=== PATIENT | female | born 1985 | race Caucasian/White ===

== ENCOUNTER 2016-11-24 00:57 | Emergency (ER) | payer MEDICAID ==
[2016-11-24] MEDS ORDERED: Bacitracin Oint 1 GM U/D Packet TOP ONE (01:09)
--- NOTE | 2016-11-24 01:12 | EDM.PDOC ---
ED HPI GENERAL MEDICAL PROBLEM - General Chief Complaint: Laceration Stated Complaint: CUT UPPPER LEFT EYE Time Seen by Provider: 11/24/16 01:10 Source of Information: Reports: Patient History Limitations: Reports: No Limitations - History of Present Illness INITIAL COMMENTS - FREE TEXT/NARRATIVE: left eyebrow laceration ; this is a 31 year old female present to ER for evaluation. She was playing with her Pitbull this evening, when his paw caught her eyebrow ring and ripped it out. now with a laceration. last tetenus >10 years. Onset: Sudden Location: Reports: Face Quality: Reports: Ache Severity: Mild Improves with: Reports: None Worsens with: Reports: None Associated Symptoms: Reports: No Other Symptoms Left Head Pain Score (Numeric/FACES): 2 - Related Data Allergies Allergy/AdvReac Type Severity Reaction Status Date / Time No Known Allergies Allergy Verified 04/24/13 06:16 Home Meds: Home Meds Gabapentin [Gralise] 300 mg PO QID 03/11/13 [History] Cyclobenzaprine [Flexeril] 10 mg PO DAILY 11/14/15 [History] FLUoxetine [PROzac] 20 mg PO DAILY 11/14/15 [History] Methylphenidate [Ritalin] 20 mg PO QID 11/14/15 [History] Past Medical History Musculoskeletal History: Reports: Fracture Neurological History: Reports: Head Trauma Psychiatric History: Reports: ADHD, Anxiety, Depression - Past Surgical History Respiratory Surgical History: Reports: Lung Resection Social & Family History - Tobacco Use Smoking Status *Q: Current Every Day Smoker Years of Tobacco use: 15 Packs/Tins Daily: 1 Used Tobacco, but Quit: No Second Hand Smoke Exposure: No - Alcohol Use Days Per Week of Alcohol Use: 0 - Recreational Drug Use Recreational Drug Use: No ED ROS GENERAL - Review of Systems Review Of Systems: See Below Constitutional: Reports: No Symptoms HEENT: Reports: No Symptoms Skin: Reports: Wound ED EXAM, SKIN/RASH Exam: See Below Exam Limited By: No Limitations General Appearance: Alert, WD/WN, No Apparent Distress Eye Exam: Left Eye: Other (eyebrow laceration, black eye), Bilateral Eye: EOMI, PERRL Nose: Normal Inspection, Normal Mucosa, No Blood Throat/Mouth: Normal Inspection, Normal Lips, Normal Teeth, Normal Gums, Normal Oropharynx, Normal Voice, No Airway Compromise Head: Normocephalic, Other (left eye with bruising and edema from minor trauma) Neck: Normal Inspection, Supple, Non-Tender Skin: Warm, Wound/Incision Characteristics: Linear Associated features: Inflammation Lymphatic: No Adenopathy ED SKIN PROCEDURES - Laceration/Wound Repair Left Lateral Other Lac/wound length in cm: 2 Appearance: Subcutaneous Distal NVT: Neuro & Vascular Intact, No Tendon Injury Anesthetic Type: Local Local Anesthesia - Lidocaine (Xylocaine): 1% With EPI Local Anesthetic Volume: Other (less than one cc) Skin Prep: Chlorhexidine (Hibiciens), Saline Exploration/Debridement/Repair: Wound Explored, in a Bloodless Field Closed with: Sutures Suture Size: 4-0 # of Sutures: 3 Suture Type: Prolene Sterile Dressing Applied: Nurse Tetanus Status Addressed: Yes (given Tdap in ER) Complications: No Course - Vital Signs Last Recorded V/S: Last Vital Signs Temp 37.5 C 11/24/16 01:09 Pulse 93 11/24/16 01:09 Resp 16 11/24/16 01:09 BP 141/84 H 11/24/16 01:09 Pulse Ox 91 L 11/24/16 01:09 - Orders/Labs/Meds Orders: Active Orders 24 hr Category Date Time Status Vaccines to be Administered [RC] PER UNIT ROUTINE Care 11/24/16 01:26 Ordered Diphth,Pertuss(Acell),Tet Vac [Adacel] Med 11/24/16 01:26 Once 0.5 ml IM .ONCE ONE Meds: Medications Discontinued Medications Generic Name Dose Route Start Last Admin Trade Name Jaradq PRN Reason Stop Dose Admin Bacitracin 1 dose 11/24/16 01:09 Bacitracin Oint 1 Gm TOP 11/24/16 01:10 ONETIME ONE Lidocaine HCl 5 ml 11/24/16 01:08 Xylocaine-Mpf 1% INJECT 11/24/16 01:09 ONETIME ONE Departure - Departure Time of Disposition: 01:33 Disposition: Home, Self-Care 01 Condition: good Clinical Impression: Broken skin Laceration of eyebrow, left Qualifiers: Encounter type: initial encounter Qualified Code(s): S01.112A - Laceration without foreign body of left eyelid and periocular area, initial encounter - Discharge Information Referrals: PCP,None [Primary Care Provider] - Forms: ED Department Discharge Care Plan Goals: eye brow laceration -sutures placed, -have suture removal in 5 days -apply bacitracin ointment two to three times a day for 3 day, then keep clean and dry -monitor of signs of infection; redness, drainage, swelling, increase pain return to clinic or ER for any sign of infection - Problem List & Annotations (1) Laceration of eyebrow, left SNOMED Code(s): 178855749, [id number] Code(s): S01.112A - LACERATION W/O FB OF LEFT EYELID AND PERIOCULAR AREA, INIT Status: Acute Priority: High Current Visit: Yes Qualifiers: Encounter type: initial encounter Qualified Code(s): S01.112A - Laceration without foreign body of left eyelid and periocular area, initial encounter - Problem List Review Problem List Initiated/Reviewed/Updated: Yes - My Orders Last 24 Hours: My Active Orders 11/24/16 01:26 Vaccines to be Administered [RC] PER UNIT ROUTINE Diphth,Pertuss(Acell),Tet Vac [Adacel] 0.5 ml IM .ONCE ONE - Assessment/Plan Last 24 Hours: My Active Orders 11/24/16 01:26 Vaccines to be Administered [RC] PER UNIT ROUTINE Diphth,Pertuss(Acell),Tet Vac [Adacel] 0.5 ml IM .ONCE ONE Plan: eye brow laceration -sutures placed, -have suture removal in 5 days -apply bacitracin ointment two to three times a day for 3 day, then keep clean and dry -monitor of signs of infection; redness, drainage, swelling, increase pain return to clinic or ER for any sign of infection
[2016-11-24] MEDS ORDERED: Diphtheria,Pertussis(Acell),Tetanus Vaccine 0.5 ML SDV IM ONE (01:26)
[2016-11-24 01:27] VITALS: BP 141/84
== END 2016-11-24 01:37 | disposition home or self-care (01) ==
LOC: JP.ED 00:57
DX: S01.112A Laceration without foreign body of left eyelid and periocular area, initial encounter (principal); F90.9 Attention-deficit hyperactivity disorder, unspecified type; F17.210 Nicotine dependence, cigarettes, uncomplicated; F32.9 Major depressive disorder, single episode, unspecified; F41.9 Anxiety disorder, unspecified; Z79.899 Other long term (current) drug therapy
CPT/HCPCS: 12011; 90471; 90715; 99283-25

== ENCOUNTER 2017-04-23 08:17 | Emergency (ER) | payer MEDICAID ==
[2017-04-23] MEDS ORDERED: Ketorolac 60 MG/2 ML SDV IM ONE (09:12)
--- NOTE | 2017-04-23 09:17 | EDM.PDOC ---
ED HPI GENERAL MEDICAL PROBLEM - General Chief Complaint: Abdominal Pain Stated Complaint: STRANGE STOMACH PAIN Time Seen by Provider: 04/23/17 09:00 Source of Information: Reports: Patient, Old Records History Limitations: Reports: No Limitations - History of Present Illness INITIAL COMMENTS - FREE TEXT/NARRATIVE: 31 yo female here with RUQ abdominal pain since about 0500h today. Has not eaten anything before onset. Is not and has never been . No hx of any abdominal surgeries. No fever or nausea. Feels like a spasm. No self tx. Has something similar recently to the LUQ area that she was not seen for and which went away. 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 (see below) (none) Bilateral Upper Abdominal Pain Score (Numeric/FACES): 6 - Related Data Allergies Allergy/AdvReac Type Severity Reaction Status Date / Time No Known Allergies Allergy Verified 04/24/13 06:16 Home Meds: Home Meds Gabapentin [Gralise] 300 mg PO QID 03/11/13 [History] Cyclobenzaprine [Flexeril] 10 mg PO DAILY 11/14/15 [History] FLUoxetine [PROzac] 20 mg PO DAILY 11/14/15 [History] Methylphenidate [Ritalin] 20 mg PO QID 11/14/15 [History] Past Medical History Respiratory History: Reports: Other (See Below) Other Respiratory History: Lung blisters Musculoskeletal History: Reports: Fracture Neurological History: Reports: Head Trauma Psychiatric History: Reports: ADHD, Anxiety, Depression - Past Surgical History Respiratory Surgical History: Reports: Lung Resection Social & Family History - Tobacco Use Smoking Status *Q: Unknown Ever Smoked Years of Tobacco use: 15 Packs/Tins Daily: 1 Used Tobacco, but Quit: No Second Hand Smoke Exposure: No - Alcohol Use Days Per Week of Alcohol Use: 0 - Recreational Drug Use Recreational Drug Use: No Drug Use in Last 12 Months: No ED ROS GENERAL - Review of Systems Review Of Systems: See Below Constitutional: Reports: No Symptoms HEENT: Reports: No Symptoms Respiratory: Reports: No Symptoms Cardiovascular: Reports: No Symptoms Endocrine: Reports: No Symptoms GI/Abdominal: Reports: Abdominal Pain : Reports: No Symptoms Musculoskeletal: Reports: No Symptoms Skin: Reports: No Symptoms Neurological: Reports: No Symptoms ED EXAM, GI/ABD - Physical Exam Exam: See Below Exam Limited By: No Limitations General Appearance: Alert, WD/WN, No Apparent Distress Eyes: Bilateral: Normal Appearance Ears: Normal External Exam, Normal Canal, Hearing Grossly Normal Nose: Normal Inspection, Normal Mucosa, No Blood Throat/Mouth: Normal Inspection, Normal Lips, Normal Oropharynx, Normal Voice, No Airway Compromise Head: Atraumatic, Normocephalic Neck: Normal Inspection Respiratory/Chest: No Respiratory Distress, Lungs Clear, Normal Breath Sounds, No Accessory Muscle Use Cardiovascular: Regular Rate, Rhythm, No Edema GI/Abdominal Exam: Normal Bowel Sounds, Soft, No Distention, Tender (RUQ). No: Distended, Guarding, Rigid Back Exam: Normal Inspection. No: CVA Tenderness (R), CVA Tenderness (L) Extremities: Normal Inspection, Normal Range of Motion, Non-Tender, No Pedal Edema Neurological: Alert, Oriented, CN II-XII Intact, Normal Cognition, No Motor/ Sensory Deficits Psychiatric: Normal Affect, Normal Mood Skin Exam: Warm, Dry, Intact, Normal Color, No Rash Lymphatic: No Adenopathy Course - Orders/Labs/Meds Orders: Active Orders 24 hr Category Date Time Status COMPREHENSIVE METABOLIC PN,CMP [CHEM] Stat Lab 04/23/17 09:20 Results CRP [C-REACTIVE PROTEIN] [CHEM] Stat Lab 04/23/17 09:20 Results Labs: Laboratory Tests 04/23/17 04/23/17 Range/Units 09:20 09:20 WBC 10.4 (4.5-11.0) K/uL RBC 4.49 (3.30-5.50) M/uL Hgb 14.4 (12.0-15.0) g/dL Hct 42.0 (36.0-48.0) % MCV 94 (80-98) fL MCH 32 H (27-31) pg MCHC 34 (32-36) % Plt Count 330 (150-400) K/uL Sodium 140 (140-148) mmol/L Potassium 3.7 (3.6-5.2) mmol/L Chloride 104 (100-108) mmol/L Carbon Dioxide 26 (21-32) mmol/L Anion Gap 10.3 (5.0-14.0) mmol/L BUN 9 (7-18) mg/dL Creatinine 0.7 (0.6-1.0) mg/dL Est Cr Clr Drug Dosing 107.01 mL/min Estimated GFR (MDRD) > 60 (>60) Glucose 88 (74-106) mg/dL Calcium 9.0 (8.5-10.1) mg/dL Total Bilirubin 0.5 (0.2-1.0) mg/dL AST 31 (15-37) U/L ALT 43 (12-78) U/L Alkaline Phosphatase 79 (46-116) U/L Total Protein 7.6 (6.4-8.2) g/dL Albumin 4.0 (3.4-5.0) g/dL Globulin 3.6 H (2.3-3.5) g/dL Albumin/Globulin Ratio 1.1 L (1.2-2.2) Meds: Medications Discontinued Medications Generic Name Dose Route Start Last Admin Trade Name Freq PRN Reason Stop Dose Admin Ketorolac Tromethamine 60 mg 04/23/17 09:12 04/23/17 10:19 Toradol IM 04/23/17 09:13 Not Given ONETIME ONE Departure - Departure Time of Disposition: 10:41 Disposition: Home, Self-Care 01 Condition: Good Clinical Impression: Biliary colic symptom - Discharge Information Referrals: Anuj Vogel MD [Primary Care Provider] - Forms: ED Department Discharge - My Orders Last 24 Hours: My Active Orders 04/23/17 09:20 COMPREHENSIVE METABOLIC PN,CMP [CHEM] Stat CRP [C-REACTIVE PROTEIN] [CHEM] Stat - Assessment/Plan Last 24 Hours: My Active Orders 04/23/17 09:20 COMPREHENSIVE METABOLIC PN,CMP [CHEM] Stat CRP [C-REACTIVE PROTEIN] [CHEM] Stat
== END 2017-04-23 10:59 | disposition home or self-care (01) ==
LOC: JP.ED 08:17
DX: K80.50 Calculus of bile duct without cholangitis or cholecystitis without obstruction (principal); F32.9 Major depressive disorder, single episode, unspecified; Z79.899 Other long term (current) drug therapy; R19.8 Other specified symptoms and signs involving the digestive system and abdomen
CPT/HCPCS: 36415; 80053; 85027; 86140; 99284

== ENCOUNTER 2017-05-11 18:17 | Emergency (ER) | payer MEDICAID ==
[2017-05-11 18:52] VITALS: BP 144/86
[2017-05-11] MEDS ORDERED: Bacitracin Oint 1 GM U/D Packet ONE (19:15)
[2017-05-11] MEDS ORDERED: Diphtheria,Pertussis(Acell),Tetanus Vaccine 0.5 ML SDV ONE (19:15)
[2017-05-11] MEDS ORDERED: Bacitracin Oint 1 GM U/D Packet TOP ONE (19:53)
--- NOTE | 2017-05-11 19:59 | EDM.PDOC ---
ED HPI GENERAL MEDICAL PROBLEM - General Chief Complaint: Laceration Stated Complaint: CUT LT LITTLE FINGER Time Seen by Provider: 05/11/17 19:38 Source of Information: Reports: Patient, Family, RN Notes Reviewed History Limitations: Reports: No Limitations - History of Present Illness INITIAL COMMENTS - FREE TEXT/NARRATIVE: 31-year-old female presents emergency department today complaint of laceration to her left hand this occurred while she was carving up a turkey laceration is over the proximal flinching on digit #5 she has no functional complaints sensation is intact - Related Data Allergies Allergy/AdvReac Type Severity Reaction Status Date / Time No Known Allergies Allergy Verified 04/24/13 06:16 Home Meds: Home Meds Gabapentin [Gralise] 300 mg PO QID 03/11/13 [History] Cyclobenzaprine [Flexeril] 10 mg PO DAILY 11/14/15 [History] FLUoxetine [PROzac] 20 mg PO DAILY 11/14/15 [History] Methylphenidate [Ritalin] 20 mg PO QID 11/14/15 [History] Hydrocodone/Acetaminophen [Hydrocodon-Acetaminophen 5-325] 1 tab PO TID PRN [History] Past Medical History Respiratory History: Reports: Other (See Below) Other Respiratory History: Lung blisters Musculoskeletal History: Reports: Fracture Neurological History: Reports: Head Trauma Psychiatric History: Reports: ADHD, Anxiety, Depression - Past Surgical History Respiratory Surgical History: Reports: Lung Resection Social & Family History - Tobacco Use Smoking Status *Q: Current Every Day Smoker Years of Tobacco use: 15 Packs/Tins Daily: 0.5 Used Tobacco, but Quit: No Second Hand Smoke Exposure: No - Alcohol Use Days Per Week of Alcohol Use: 0 - Recreational Drug Use Recreational Drug Use: No Drug Use in Last 12 Months: No ED ROS GENERAL - Review of Systems Review Of Systems: See Below Musculoskeletal: Reports: No Symptoms Skin: Reports: Wound Neurological: Reports: No Symptoms ED EXAM, SKIN/RASH Exam: See Below Text/Narrative:: Examination of left hand she has full range of motion all digits radial pulses + 2 there is a 2.5 cm laceration over the proximal phalanges MCP area is completely through the dermis exploration of the wound I do not appreciate any tendon involvement sensation is intact ED SKIN PROCEDURES - Laceration/Wound Repair Left Finger Lac/Wound length In cm: 2.5 Appearance: Subcutaneous Distal NVT: Neuro & Vascular Intact, No Tendon Injury Anesthetic Type: Local Local Anesthesia - Lidocaine (Xylocaine): 1% Plain Local Anesthetic Volume: 3cc Skin Prep: Chlorhexidine (Hibiciens), Saline Saline Irrigation (cc's): 90 Exploration/Debridement/Repair: Wound Explored, In a Bloodless Field, Explored to Base Closed with: Sutures Suture Size: 4-0 # of Sutures: 4 Suture Type: Nylon, Interrupted Sterile Dressing Applied: Nurse Tetanus Status Addressed: Yes (Today) Complications: No Course - Vital Signs Last Recorded V/S: Last Vital Signs Temp 97.7 F 05/11/17 19:08 Pulse 93 05/11/17 19:08 Resp 16 05/11/17 19:08 BP 144/86 H 05/11/17 19:08 Pulse Ox 94 L 05/11/17 19:08 - Orders/Labs/Meds Meds: Medications Discontinued Medications Generic Name Dose Route Start Last Admin Trade Name Freq PRN Reason Stop Dose Admin Bacitracin Confirm 05/11/17 19:15 Bacitracin Oint 1 Gm Administered 05/11/17 19:16 Dose 1 dose .ROUTE .STK-MED ONE Diphtheria/Tetanus/Acell Pertussis Confirm 05/11/17 19:15 Adacel Administered 05/11/17 19:16 Dose 0.5 ml .ROUTE .STK-MED ONE Lidocaine HCl Confirm 05/11/17 19:15 Xylocaine-Mpf 1% Administered 05/11/17 19:16 Dose 5 ml .ROUTE .STK-MED ONE Departure - Departure Time of Disposition: 19:58 Disposition: Home, Self-Care 01 Condition: Good Clinical Impression: Laceration of left little finger Qualifiers: Encounter type: initial encounter Damage to nail status: without damage Foreign body presence: without foreign body Qualified Code(s): S61.217A - Laceration without foreign body of left little finger without damage to nail, initial encounter - Discharge Information Referrals: Anuj Vogel MD [Primary Care Provider] - Forms: ED Department Discharge Additional Instructions: Suture removal in 10 days, follow wound care instruction sheet, follow-up with your primary care in 10 days for suture removal, call or return to the emergency department with worsening of symptoms - Assessment/Plan Plan: Assessment Acuity = acute Site and laterality = 2.5 cm laceration dorsal surface left digit #5 Etiology = secondary trauma with a knife Manifestations = none Location of injury = Home Lab values = none Plan Suture removal in 10 days, follow wound care instruction sheet Patient was in agreement with the plan all questions were answered, they were instructed to return to the emergency department or call for worsening symptoms. This note was dictated using [employer] voice recognition software please call with any questions.
== END 2017-05-11 20:07 | disposition home or self-care (01) ==
LOC: JP.ED 18:17
DX: S61.217A Laceration without foreign body of left little finger without damage to nail, initial encounter (principal); F17.210 Nicotine dependence, cigarettes, uncomplicated; Z79.899 Other long term (current) drug therapy; Z23 Encounter for immunization; W26.0XXA Contact with knife, initial encounter
CPT/HCPCS: 12001; 90471; 90715; 99283-25

== ENCOUNTER 2017-05-14 17:22 | Emergency (ER) | payer MEDICAID ==
[2017-05-14 17:35] VITALS: BP 154/89
--- NOTE | 2017-05-14 18:21 | EDM.PDOC ---
ED HPI GENERAL MEDICAL PROBLEM - General Chief Complaint: Wound Recheck Stated Complaint: INFECTION Time Seen by Provider: 05/14/17 18:03 Source of Information: Reports: Patient, RN Notes Reviewed History Limitations: Reports: No Limitations - History of Present Illness INITIAL COMMENTS - FREE TEXT/NARRATIVE: 31-year-old female presents emergency department today with concern about wound infection she recently had a laceration to her little finger on her left hand over the last couple days she's noted redness going up her arm as well as thick purulent drainage coming from the wound she was evaluated in clinic was given 1 dose of medication IM started on combination Bactrim and clindamycin she only has 1 dose of her antibiotics in sister redness has gone up past the original But now has faded slightly no fevers Left Wrist Pain Score (Numeric/FACES): 8 - Related Data Allergies Allergy/AdvReac Type Severity Reaction Status Date / Time No Known Allergies Allergy Verified 04/24/13 06:16 Home Meds: Home Meds Gabapentin [Gralise] 300 mg PO QID 03/11/13 [History] Cyclobenzaprine [Flexeril] 10 mg PO DAILY PRN 11/14/15 [History] FLUoxetine [PROzac] 20 mg PO DAILY 11/14/15 [History] Methylphenidate [Ritalin] 20 mg PO QID 11/14/15 [History] Hydrocodone/Acetaminophen [Hydrocodon-Acetaminophen 5-325] 1 tab PO TID PRN [History] Cephalexin 1 cap PO QID 05/14/17 [History] Sulfamethoxazole/Trimethoprim [Bactrim Ds Tablet] 1 tab PO BID 05/14/17 [History ] Past Medical History Respiratory History: Reports: Other (See Below) Other Respiratory History: Lung blisters Musculoskeletal History: Reports: Fracture Neurological History: Reports: Head Trauma Psychiatric History: Reports: ADHD, Anxiety, Depression - Past Surgical History Respiratory Surgical History: Reports: Lung Resection Social & Family History - Tobacco Use Smoking Status *Q: Light Tobacco Smoker Years of Tobacco use: 16 Packs/Tins Daily: 0.5 Used Tobacco, but Quit: No Second Hand Smoke Exposure: No - Alcohol Use Days Per Week of Alcohol Use: 0 - Recreational Drug Use Recreational Drug Use: No Drug Use in Last 12 Months: No ED ROS GENERAL - Review of Systems Review Of Systems: See Below Constitutional: Denies: Fever, Chills Respiratory: Reports: No Symptoms Cardiovascular: Reports: No Symptoms Skin: Reports: Rash ED EXAM, SKIN/RASH Exam: See Below Text/Narrative:: Examination of the integument system left hand the wound is healing well. Is mild amount erythema around the warm slight amount of drainage is noted thick purulence there is slight erythema up the dorsal surface of the hand mid forearm is about 3 cm past the original line drawn is faint radial pulse is +2 Exam Limited By: No Limitations General Appearance: Alert, WD/WN, No Apparent Distress Respiratory/Chest: No Respiratory Distress Course - Vital Signs Last Recorded V/S: Last Vital Signs Temp 97.0 F 05/14/17 17:49 Pulse 113 H 05/14/17 17:49 Resp 20 05/14/17 17:49 BP 154/89 H 05/14/17 17:49 Pulse Ox 98 05/14/17 17:49 - Orders/Labs/Meds Labs: Laboratory Tests 05/14/17 05/14/17 05/14/17 Range/Units 18:28 18:28 18:28 WBC 10.1 (4.5-11.0) K/uL RBC 4.35 (3.30-5.50) M/uL Hgb 14.2 (12.0-15.0) g/dL Hct 40.6 (36.0-48.0) % MCV 93 (80-98) fL MCH 33 H (27-31) pg MCHC 35 (32-36) % Plt Count 341 (150-400) K/uL Neut % (Auto) 58 (36-66) % Lymph % (Auto) 32 (24-44) % [place] % (Auto) 8 H (2-6) % Eos % (Auto) 1 L (2-4) % Baso % (Auto) 0 (0-1) % Sodium 140 (140-148) mmol/L Potassium 3.4 L (3.6-5.2) mmol/L Chloride 104 (100-108) mmol/L Carbon Dioxide 24 (21-32) mmol/L Anion Gap 15.4 H (5.0-14.0) mmol/L BUN 7 (7-18) mg/dL Creatinine 0.9 (0.6-1.0) mg/dL Est Cr Clr Drug Dosing 80.00 mL/min Estimated GFR (MDRD) > 60 (>60) Glucose 107 H (74-106) mg/dL Lactic Acid 2.2 H (0.4-2.0) mmol/L Calcium 9.4 (8.5-10.1) mg/dL Total Bilirubin 0.4 (0.2-1.0) mg/dL AST 23 (15-37) U/L ALT 31 (12-78) U/L Alkaline Phosphatase 77 (46-116) U/L C-Reactive Protein 0.76 H (0.0-0.3) mg/dL Total Protein 7.5 (6.4-8.2) g/dL Albumin 3.8 (3.4-5.0) g/dL Globulin 3.7 H (2.3-3.5) g/dL Albumin/Globulin Ratio 1.0 L (1.2-2.2) Departure - Departure Time of Disposition: 19:16 Disposition: Home, Self-Care 01 Condition: Good Clinical Impression: Cellulitis Qualifiers: Site of cellulitis of extremity: finger Laterality: left - Discharge Information Referrals: Anuj Vogel MD [Primary Care Provider] - Forms: ED Department Discharge Additional Instructions: Take full course of antibiotics, please call with worsening of symptoms otherwise keep your regular follow-up appointments - Assessment/Plan Plan: Assessment Acuity = acute Site and laterality = wound infection left hand cellulitis Etiology = secondary trauma Manifestations = none Location of injury = Home Lab values = potassium low at 3.4 consistent with hypokalemia, CRP elevated at 0.76, lactic acid elevated at 2.2 consistent lactic acidosis Plan I did review lab work results with her recommend she continue the antibiotics of Bactrim and clindamycin that were initiated yesterday Patient was in agreement with the plan all questions were answered, they were instructed to return to the emergency department or call for worsening symptoms. This note was dictated using [employer] voice recognition software please call with any questions.
== END 2017-05-14 19:23 | disposition home or self-care (01) ==
LOC: JP.ED 17:22
DX: L03.012 Cellulitis of left finger (principal); F17.210 Nicotine dependence, cigarettes, uncomplicated; Z79.899 Other long term (current) drug therapy
CPT/HCPCS: 36415; 80053; 83605; 85025; 86140; 99283

== ENCOUNTER 2017-06-01 07:51 | Day surgery (SDC) | payer MEDICAID ==
[~2017-06-01 07:51] MED LIST: Bupivacaine 0.5% 50 ML MDV ONE; Lidocaine 1% with EPINEPHrine 1:100,000 50 ML MDV ONE
[2017-06-01] MEDS ORDERED: Sodium Chloride 0.9% 1,000 ML IV SCH (08:00)
[2017-06-01] MEDS ORDERED: metroNIDAZOLE/Normal Saline 500 MG in Premix Bag 1 BAG IV ONE (08:15)
[2017-06-01] MEDS ORDERED: Glycopyrrolate 0.2 MG/ML 5 ML MDV ONE (08:32)
[2017-06-01] MEDS ORDERED: Ondansetron 4 MG/2 ML SDV ONE (08:32)
[2017-06-01] MEDS ORDERED: Neostigmine Methylsulfate 1 MG/ML 5 ML Syringe ONE (08:32)
[2017-06-01] MEDS ORDERED: Dexamethasone 4 MG/ML SDV ONE (08:32)
[2017-06-01] MEDS ORDERED: Propofol 200 MG/20 ML SDV ONE (08:32)
[2017-06-01] MEDS ORDERED: Succinylcholine 200 MG/10 ML MDV ONE (08:32)
[2017-06-01] MEDS ORDERED: Rocuronium 50 MG/5 ML Vial ONE (08:32)
[2017-06-01] MEDS ORDERED: ceFAZolin 2 GM in Premix Bag 1 BAG IV ONE (09:00)
[2017-06-01] MEDS ORDERED: fentaNYL 250 MCG/5 ML SDV ONE (09:13)
[2017-06-01] MEDS ORDERED: Zolpidem 5 MG Tab PO PRN (09:21)
[2017-06-01] MEDS ORDERED: Acetaminophen/oxyCODONE 325-10 MG Tab PO PRN (09:21)
[2017-06-01] MEDS ORDERED: hydrOXYzine HCl 100 MG/2 ML SDV IM PRN (09:21)
[2017-06-01] MEDS ORDERED: Polyethylene Glycol 3350 Powder 17 GM Packet PO PRN (09:21)
[2017-06-01] MEDS ORDERED: Benzocaine/Cetylpyridinium/Menthol Lozenge MUCMEM PRN (09:21)
[2017-06-01] MEDS ORDERED: Docusate Sodium 100 MG Cap PO PRN (09:21)
[2017-06-01] MEDS ORDERED: diphenhydrAMINE 50 MG/ML SDV IVPUSH PRN (09:21)
[2017-06-01] MEDS ORDERED: Promethazine 25 MG/ML SDV IM PRN (09:21)
[2017-06-01] MEDS ORDERED: Ketorolac 60 MG/2 ML SDV ONE (09:47)
[2017-06-01 14:48] VITALS: BP 118/73
--- NOTE | 2017-06-01 15:11 | OR ---
DATE OF PROCEDURE: 06/01/2017 PROCEDURE: Laparoscopic cholecystectomy. PREOPERATIVE DIAGNOSIS: Mild biliary dyskinesia. POSTOPERATIVE DIAGNOSIS: Mild biliary dyskinesia. RISKS: Risks, benefits, alternatives, limitations including but not limited to infection, bleeding, injury to common bile duct, cystic duct leaks, and other risks not listed here were explained to the patient, who wished to proceed. ANESTHESIA: General/local. PROCEDURE IN DETAIL: The patient was placed in supine position. A supraumbilical curvilinear incision was made. A Veress needle was used to enter the abdomen without abnormality. A drop test was performed without abnormality. The abdomen was subsequently insufflated. An Optiview trocar was inserted, and no evidence of enterotomy or injury was noted. An additional 10 and two 5 mm ports were entered under direct visualization. The gallbladder was retracted cephalad. The infundibulum was retracted inferolaterally. Using blunt dissection, a "clear view" of the gallbladder was obtained. A single pulsatile structure was entering the gallbladder and a single nonpulsatile structure was noted entering the gallbladder. These were subsequently clipped and subsequently transected. The remaining one third of the gallbladder was removed off the gallbladder bed without difficulty. This was delivered through the superior port using a bag. The liver was reinspected for bleeding, which none was noted. This was thoroughly irrigated. The entry site was again inspected. No abnormalities were noted. The air was removed. The wound was closed with 3-0 Vicryl and 4-0 Vicryl in an interrupted and running fashion. Dermabond was applied. The patient tolerated the procedure well. Andrew Camarena MD /[id number]
== END 2017-06-01 15:16 | disposition home or self-care (01) ==
LOC: JP.SDS 07:51 → JP.MS 09:21 → JP.SDS 15:16
PROVIDERS: ATTEND Surgery
DX: K81.1 Chronic cholecystitis (principal); F98.8 Other specified behavioral and emotional disorders with onset usually occurring in childhood and adolescence; F32.9 Major depressive disorder, single episode, unspecified; B18.2 Chronic viral hepatitis C; Z79.899 Other long term (current) drug therapy; F17.210 Nicotine dependence, cigarettes, uncomplicated
CPT/HCPCS: 36415; 47562; 80053; 85027; A9270; J0690; J1100; J1885; J2405; J2704; J2710; J3010; J3410; J7040; 88304; J0330

== ENCOUNTER 2017-12-06 23:11 | Emergency (ER) | payer MEDICAID ==
--- NOTE | 2017-12-07 00:05 | EDM.PDOC ---
ED HPI GENERAL MEDICAL PROBLEM - General Chief Complaint: Skin Complaint Stated Complaint: INFECTION ON LEFT LEG Time Seen by Provider: 12/07/17 00:01 Source of Information: Reports: Patient, RN Notes Reviewed History Limitations: Reports: No Limitations - History of Present Illness INITIAL COMMENTS - FREE TEXT/NARRATIVE: 32-year-old female presents to the emergency department today with a boil on her left labia she states this recent open up she's had some thick purulent drainage come from this area it is tender to the touch no fevers ingrown hair labia Pain Score (Numeric/FACES): 8 - Related Data Allergies Allergy/AdvReac Type Severity Reaction Status Date / Time No Known Allergies Allergy Verified 12/06/17 23:49 Home Meds: Home Meds Cyclobenzaprine [Flexeril] 10 mg PO TID PRN 11/14/15 [History] FLUoxetine [PROzac] 60 mg PO DAILY 11/14/15 [History] Methylphenidate [Ritalin] 20 mg PO QID 11/14/15 [History] Hydrocodone/Acetaminophen [Hydrocodon-Acetaminophen 5-325] 1 tab PO TID PRN [History] Albuterol [Ventolin HFA] 2 puff PO QID PRN 05/17/17 [History] Gabapentin [Neurontin] 600 mg PO TID 05/17/17 [History] Nicotine [Nicotine Patch] 1 patch TOP Q24H 05/17/17 [History] cloNIDine [Catapres] 0.1 mg PO BEDTIME PRN 05/17/17 [History] hydrOXYzine Pamoate [Hydroxyzine Pamoate] 25 - 50 mg PO QID PRN 05/17/17 [ History] Past Medical History Respiratory History: Reports: Bronchitis, Recurrent, Other (See Below) Other Respiratory History: Lung blisters Musculoskeletal History: Reports: Fracture, Other (See Below) Other Musculoskeletal History: left laceration Neurological History: Reports: Head Trauma Psychiatric History: Reports: ADHD, Anxiety, Depression, Panic Attack Hematologic History: Reports: Blood Transfusion(s) Immunologic History: Reports: Other (See Below) Other Immunologic History: Hepatitis C - Infectious Disease History Infectious Disease History: Reports: Chicken Pox - Past Surgical History Head Surgeries/Procedures: Reports: None Respiratory Surgical History: Reports: Lung Resection, Pneumonectomy, Other ( See Below) Other Respiratory Surgeries/Procedures: partial removal of right lung GI Surgical History: Reports: Cholecystectomy Dermatological Surgical History: Reports: Plastic Surgical Reconstruction/Repair , Other (See Below) Social & Family History - Family History Family Medical History: Noncontributory - Tobacco Use Smoking Status *Q: Current Every Day Smoker Years of Tobacco use: 10 Packs/Tins Daily: 0.5 - Caffeine Use Caffeine Use: Reports: Coffee, Energy Drinks, Soda - Recreational Drug Use Recreational Drug Use: Yes Drug Use in Last 12 Months: No ED ROS GENERAL - Review of Systems Review Of Systems: See Below Constitutional: Denies: Fever Skin: Reports: Pallor, Rash, Erythema, Change in Color ED EXAM, SKIN/RASH Exam: See Below Text/Narrative:: Examination of the labia in the presence of nursing staff reveal a boil that is open and draining thick purulent discharge it is erythematous per report is warm to the touch and tender to the touch Exam Limited By: No Limitations General Appearance: Alert, WD/WN, No Apparent Distress Course - Vital Signs Last Recorded V/S: Last Vital Signs Temp 96.6 F 12/06/17 23:46 Pulse 98 12/06/17 23:46 Resp 19 12/06/17 23:46 BP 141/100 H 12/06/17 23:46 Pulse Ox 98 12/06/17 23:46 Departure - Departure Time of Disposition: 00:04 Disposition: Home, Self-Care 01 Condition: Good Clinical Impression: Abscess of labia - Discharge Information Referrals: PCP,None [Primary Care Provider] - Additional Instructions: Continue with sitz baths, take full course of antibiotics, Please followup with your primary care provider in 3-5 days if not better, please call return to the emergency department with worsening of symptoms. - Assessment/Plan Plan: Assessment Acuity = acute Site and laterality = abscess, left labia majora Etiology = secondary bacterial cause Manifestations = none Location of injury = Home Lab values = none Plan Bactrim DS 1 tab by mouth twice a day 10 days follow-up primary care in 3-5 days if not better sits baths This note was dictated using [employer] recognition software please call with any questions on syntax or grammar.
[2017-12-07 00:07] VITALS: BP 131/94
== END 2017-12-07 00:15 | disposition home or self-care (01) ==
LOC: JP.ED 23:11
DX: N76.4 Abscess of vulva (principal); B96.89 Other specified bacterial agents as the cause of diseases classified elsewhere; F41.9 Anxiety disorder, unspecified; F32.9 Major depressive disorder, single episode, unspecified; F90.9 Attention-deficit hyperactivity disorder, unspecified type; F17.210 Nicotine dependence, cigarettes, uncomplicated; Z79.899 Other long term (current) drug therapy
CPT/HCPCS: 99283

== ENCOUNTER 2022-09-17 00:39 | Emergency (ER) | payer OTHER, MEDICAID ==
[2022-09-17 01:16] VITALS: BP 112/75; PULSE 127
[2022-09-17] MEDS ORDERED: Gabapentin 300 MG Cap PO ONE (02:18)
== END 2022-09-17 02:42 ==
LOC: JP.ED 00:39
DX: M70.52 Other bursitis of knee, left knee (principal); S80.212A Abrasion, left knee, initial encounter; Y04.0XXA Assault by unarmed brawl or fight, initial encounter
CPT/HCPCS: 73562-26-LT; 73562-LT; 99283

== ENCOUNTER 2023-02-08 06:30 | Day surgery (SDC) | payer MEDICAID ==
[2023-02-08 06:57] LABS: BASOPHILS ABSOLUTE AUTO 0.07 K/uL (0.00-0.10); EOSINOPHILS ABSOLUTE AUTO 0.24 K/uL (0.00-0.40); EOSINOPHILS PERCENT AUTO 3.3 % (0.0-5.4); HEMATOCRIT 40.4 % (34.3-46.0); HEMOGLOBIN 14.1 g/dL (11.2-15.5); IMMATURE GRAN PERCENT AUTO 0.1 % (0.0-0.7); LYMPHOCYTES ABSOLUTE AUTO 3.04 K/uL (0.8-3.3); LYMPHOCYTES PERCENT AUTO 41.5 % (11.4-47.7); MEAN CORPUSCULAR HEMOGLOBIN 32.6 pg (31.6-35.5); MEAN CORPUSCULAR HGB CONC 34.9 g/dL (31.6-35.5); MEAN CORPUSCULAR VOLUME 93.3 fL (81.4-99.0); MONOCYTES ABSOLUTE AUTO 0.59 K/uL (0.20-0.90); NEUTROPHILS ABSOLUTE AUTO 3.38 K/uL (1.0-7.6); NEUTROPHILS PERCENT AUTO 46.1 % (40.0-78.1); PLATELET COUNT,PLT 373 K/uL (130-375); RED BLOOD CELL COUNT 4.33 M/uL (3.77-5.24); WHITE BLOOD CELL COUNT,WBC 7.3 K/uL (3.2-11.0)
[2023-02-08] MEDS ORDERED: Nozin Nasal Sanitizer NASBOTH ONE (07:00)
[2023-02-08] MEDS ORDERED: Lactated Ringers 1,000 ML IV SCH (07:00)
[2023-02-08 07:04] LABS: IMMATURE GRAN ABSOLUTE AUTO 0.01 K/uL (0.00-0.23)
[2023-02-08 07:13] LABS: CALCIUM 8.7 mg/dL (8.5-10.1); CREATININE 0.8 mg/dL (0.6-1.0); EST CRCL DRUG DOSING (CG) 84.95 mL/min; POTASSIUM,K 4.1 mmol/L (3.6-5.2)
[2023-02-08] MEDS ORDERED: fentaNYL 250 MCG/5 ML SDV ONE ×2 (07:13→09:03)
[2023-02-08 07:14] LABS: ANION GAP 12.1 mmol/L (5.0-14.0)
[2023-02-08] MEDS ORDERED: Rocuronium 50 MG/5 ML Vial ONE (07:14)
[2023-02-08] MEDS ORDERED: Succinylcholine 200 MG/10 ML MDV ONE (07:14)
[2023-02-08] MEDS ORDERED: Propofol 200 MG/20 ML SDV ONE (07:14)
[2023-02-08] MEDS ORDERED: Glycopyrrolate 0.2 MG/ML 5 ML MDV ONE (07:14)
[2023-02-08] MEDS ORDERED: Dexamethasone 4 MG/ML SDV ONE (07:14)
[2023-02-08] MEDS ORDERED: Ondansetron 4 MG/2 ML SDV ONE (07:14)
[2023-02-08] MEDS ORDERED: Neostigmine Methylsulfate 1 MG/ML 5 ML Syringe ONE (07:14)
[2023-02-08] MEDS ORDERED: ceFAZolin 2 GM in Premix Bag 1 BAG IV ONE (08:00)
[2023-02-08] MEDS ORDERED: Bupivacaine 0.5% 30 ML SDV ONE (08:17)
[2023-02-08] MEDS ORDERED: fentaNYL 100 MCG/2 ML SDV ONE (09:57)
[2023-02-08] MEDS ORDERED: Morphine 2 MG/ML SYRINGE IVPUSH ONE (10:20)
[2023-02-08] MEDS ORDERED: Acetaminophen/oxyCODONE 325-5 MG Tab PO ONE (11:30)
[2023-02-08 11:38] VITALS: BP 123/85; PULSE 70
== END 2023-02-08 12:34 | disposition home or self-care (01) ==
LOC: JP.SDS 06:30
PROVIDERS: ATTEND Specialist
DX: S83.512A Sprain of anterior cruciate ligament of left knee, initial encounter (principal); M22.42 Chondromalacia patellae, left knee; F41.1 Generalized anxiety disorder; F33.0 Major depressive disorder, recurrent, mild; F43.10 Post-traumatic stress disorder, unspecified; F90.9 Attention-deficit hyperactivity disorder, unspecified type; F17.200 Nicotine dependence, unspecified, uncomplicated; Z98.890 Other specified postprocedural states; Z90.49 Acquired absence of other specified parts of digestive tract; Z79.899 Other long term (current) drug therapy; X58.XXXA Exposure to other specified factors, initial encounter
CPT/HCPCS: 29888; 36415; 80048; 84703; 85025; A9270; C1713; C1762; J0330; J0690; J1100; J2270; J2405; J2704; J2710; J3010; J3490; J7120